=== PATIENT | female | born 1950 | race Two or more races ===

== ENCOUNTER 2018-01-03 12:47 | Outpatient (CLI) | payer OTHER ==
[~2018-01-03 12:47] MED LIST: CENTRUM SILVER1 EAC2; CRESTOR10 MG; LEVAQUIN500 MG; LEVOXYL100 MCG; LISINOPRIL10 MG; NEURONTIN300 MG PO
== END 2018-01-03 12:50 | disposition home or self-care (01) ==
LOC: RAD 12:47
DX: M54.5 Low back pain (principal)

== ENCOUNTER 2018-01-25 08:58 | Outpatient (CLI) | payer OTHER | END 2018-01-25 09:05 | disposition home or self-care (01) | LOC: TOM 08:58 | DX: R10.12 Left upper quadrant pain (principal); R10.2 Pelvic and perineal pain | CPT/HCPCS: 74177; Q9965 ==

== ENCOUNTER 2018-01-30 10:37 | Outpatient (CLI) | payer OTHER | END 2018-01-30 10:48 | disposition home or self-care (01) | LOC: MRI 10:37 | DX: M51.36 Other intervertebral disc degeneration, lumbar region (principal) | CPT/HCPCS: 72148 ==

== ENCOUNTER 2018-02-09 11:53 | Emergency (ER) | payer OTHER ==
[~2018-02-09] VITALS: Ht 160 cm; Wt 63.5 kg
[2018-02-09] MEDS ORDERED: CRESTOR10 MG ×2 (12:13→12:14)
[2018-02-09] MEDS ORDERED: ATENOLOL25 MG (12:13)
[2018-02-09] MEDS ORDERED: ZANTAC300 MG (12:14)
[2018-02-09] MEDS ORDERED: CLONAZEPAM1 M1 (12:15)
[2018-02-09] MEDS ORDERED: PAXIL20 MG (12:15)
== END 2018-02-09 17:49 | disposition home or self-care (01) ==
LOC: ER 11:53
DX: K66.0 Peritoneal adhesions (postprocedural) (postinfection) (principal); K21.9 Gastro-esophageal reflux disease without esophagitis

== ENCOUNTER 2018-02-27 08:01 | Outpatient (CLI) | payer OTHER ==
[~2018-02-27 08:01] MED LIST changes: +ATENOLOL25 MG; +CLONAZEPAM1 M1; +PAXIL20 MG; +ZANTAC300 MG
== END 2018-02-27 09:00 | disposition home or self-care (01) ==
LOC: NUCLEAR 08:01
DX: M79.661 Pain in right lower leg (principal); M79.662 Pain in left lower leg; I87.2 Venous insufficiency (chronic) (peripheral); I73.9 Peripheral vascular disease, unspecified

== ENCOUNTER 2018-02-28 08:08 | Outpatient (CLI) | payer OTHER | END 2018-02-28 09:00 | disposition home or self-care (01) | LOC: NUCLEAR 08:08 | DX: M79.661 Pain in right lower leg (principal); M79.662 Pain in left lower leg; I87.2 Venous insufficiency (chronic) (peripheral) ==

== ENCOUNTER 2018-11-06 11:12 | Outpatient (CLI) | payer OTHER | END 2018-11-06 11:16 | disposition home or self-care (01) | LOC: RAD 11:12 | DX: M54.5 Low back pain (principal); M17.12 Unilateral primary osteoarthritis, left knee; M17.10 Unilateral primary osteoarthritis, unspecified knee ==

== ENCOUNTER 2019-02-03 11:02 | Outpatient (CLI) | payer OTHER | END 2019-02-03 11:17 | disposition home or self-care (01) | LOC: MRI 11:02 | DX: M23.322 Other meniscus derangements, posterior horn of medial meniscus, left knee (principal) | CPT/HCPCS: 73721 ==

== ENCOUNTER 2019-02-11 14:21 | Outpatient (CLI) | payer OTHER | END 2019-02-11 14:23 | disposition home or self-care (01) | LOC: RAD 14:21 | DX: M25.532 Pain in left wrist (principal) ==

== ENCOUNTER 2019-02-18 09:22 | Outpatient (CLI) | payer OTHER | END 2019-02-18 09:33 | disposition home or self-care (01) | LOC: RAD 09:22 | DX: M25.532 Pain in left wrist (principal) ==

== ENCOUNTER 2019-03-24 08:45 | Outpatient (CLI) | payer OTHER | END 2019-03-24 08:51 | disposition home or self-care (01) | LOC: RAD 08:45 | DX: M25.532 Pain in left wrist (principal) ==

== ENCOUNTER 2019-05-19 10:33 | Emergency (ER) | payer OTHER ==
[~2019-05-19] VITALS: Ht 162.6 cm; Wt 65.3 kg
[2019-05-19] MEDS ORDERED: MUPIROCIN22 GM TOP (11:47)
[2019-05-19] MEDS ORDERED: LEVAQUIN500 MG PO (11:47)
== END 2019-05-19 12:16 | disposition home or self-care (01) ==
LOC: ER 10:33
DX: S51.851A Open bite of right forearm, initial encounter (principal); W55.01XA Bitten by cat, initial encounter; Y93.89 Activity, other specified; Y92.89 Other specified places as the place of occurrence of the external cause; Y99.8 Other external cause status

== ENCOUNTER → 2019-05-20 | Outpatient (CLI) | payer OTHER ==
[~2019-05-20] MED LIST changes: +LEVAQUIN500 MG PO; +MUPIROCIN22 GM TOP
== END | disposition home or self-care (01) ==
LOC: MAMO-SONO 11:15 → SONOGRAMA 11:28
DX: M25.532 Pain in left wrist (principal)

== ENCOUNTER → 2019-06-27 | Outpatient (CLI) | payer OTHER | END | disposition home or self-care (01) | LOC: RAD 09:23 | DX: M17.12 Unilateral primary osteoarthritis, left knee (principal) ==

== ENCOUNTER 2019-08-25 12:16 | Outpatient (CLI) | payer OTHER | END 2019-08-25 12:19 | disposition home or self-care (01) | LOC: RAD 12:16 | DX: M54.5 Low back pain (principal) ==

== ENCOUNTER 2020-01-07 08:02 | Outpatient (CLI) | payer OTHER | END 2020-01-07 08:12 | disposition home or self-care (01) | LOC: MRI 08:02 | PROVIDERS: ATTEND Orthopaedic Surgery Hand Surgery | DX: M24.132 Other articular cartilage disorders, left wrist (principal) | CPT/HCPCS: 73218 ==

== ENCOUNTER 2020-03-29 10:32 | Outpatient (CLI) | payer OTHER | END 2020-03-29 10:33 | disposition home or self-care (01) | LOC: RAD 10:32 | PROVIDERS: ATTEND Orthopaedic Surgery Adult Reconstructive Orthopaedic Surgery | DX: S32.592A Other specified fracture of left pubis, initial encounter for closed fracture (principal) ==

== ENCOUNTER 2020-08-09 05:45 | Day surgery (SDC) | payer OTHER ==
[~2020-08-09 05:45] MED LIST changes: +ACETAMINOPHEN-1 EAC2 PO; +LEVO-T100 MCG PO; +TRAZODONE HCL150 MG PO
[2020-08-09] MEDS ORDERED: PERCOCET 5-3251 EACH PO (08:21)
[2020-08-09] MEDS ORDERED: RECTICARE30 GM TOP (08:21)
[2020-08-09] MEDS ORDERED: DERMOPLAST FIRS78 GM TOP (08:22)
== END 2020-08-09 13:25 | disposition home or self-care (01) ==
LOC: CIR.AMB 05:45
PROVIDERS: ATTEND Surgery
DX: K64.8 Other hemorrhoids (principal); K64.1 Second degree hemorrhoids; Z20.822 Contact with and (suspected) exposure to COVID-19

== ENCOUNTER 2020-10-13 14:56 | Outpatient (CLI) | payer OTHER ==
[~2020-10-13 14:56] MED LIST changes: +DERMOPLAST FIRS78 GM TOP; +PERCOCET 5-3251 EACH PO; +RECTICARE30 GM TOP
== END 2020-10-13 15:02 | disposition home or self-care (01) ==
LOC: RAD 14:56
PROVIDERS: ATTEND Internal Medicine
DX: M25.572 Pain in left ankle and joints of left foot (principal); S99.822A Other specified injuries of left foot, initial encounter; X58.XXXA Exposure to other specified factors, initial encounter; Y93.89 Activity, other specified; Y92.89 Other specified places as the place of occurrence of the external cause; Y99.8 Other external cause status

== ENCOUNTER 2020-11-29 15:26 | Outpatient (CLI) | payer OTHER | END 2020-11-29 15:27 | disposition home or self-care (01) | LOC: RAD 15:26 | PROVIDERS: ATTEND Physical Medicine & Rehabilitation | DX: S92.351A Displaced fracture of fifth metatarsal bone, right foot, initial encounter for closed fracture (principal) ==

== ENCOUNTER 2020-12-10 14:00 | Outpatient (CLI) | payer OTHER | END 2020-12-10 14:01 | disposition home or self-care (01) | LOC: NUCLEAR 14:00 | PROVIDERS: ATTEND Orthopaedic Surgery | DX: M81.0 Age-related osteoporosis without current pathological fracture (principal) ==

== ENCOUNTER → 2020-12-14 08:51 | Outpatient (CLI) | payer OTHER | END | disposition home or self-care (01) | LOC: LAB 08:51 | PROVIDERS: ATTEND Orthopaedic Surgery | DX: E55.9 Vitamin D deficiency, unspecified (principal); M85.9 Disorder of bone density and structure, unspecified; E21.3 Hyperparathyroidism, unspecified; M81.8 Other osteoporosis without current pathological fracture; E56.1 Deficiency of vitamin K ==

== ENCOUNTER 2022-02-24 08:25 | Outpatient (CLI) | payer OTHER | END 2022-02-24 08:29 | disposition home or self-care (01) | LOC: SONOGRAMA 08:25 | PROVIDERS: ATTEND Specialist | DX: D21.21 Benign neoplasm of connective and other soft tissue of right lower limb, including hip (principal) ==

== ENCOUNTER 2023-05-28 11:08 | Outpatient (CLI) | payer OTHER | END 2023-05-28 11:13 | disposition home or self-care (01) | LOC: SONOGRAMA 11:08 | PROVIDERS: ATTEND Specialist | DX: D21.21 Benign neoplasm of connective and other soft tissue of right lower limb, including hip (principal); Z88.0 Allergy status to penicillin; Z88.1 Allergy status to other antibiotic agents; Z88.6 Allergy status to analgesic agent ==

== ENCOUNTER 2025-01-18 12:26 | Emergency (ER) | payer OTHER ==
[~2025-01-18] VITALS: Ht 160 cm; Wt 62.6 kg
[2025-01-18] MEDS ORDERED: ACETAMINOPHEN 500 MG GEL..CAP PO ONE (13:15)
== END 2025-01-18 14:00 | disposition home or self-care (01) ==
LOC: ER 12:40
DX: M79.672 Pain in left foot (principal); I10 Essential (primary) hypertension; E03.8 Other specified hypothyroidism; Z88.0 Allergy status to penicillin; Z88.1 Allergy status to other antibiotic agents; Z88.6 Allergy status to analgesic agent